=== PATIENT | female | born 1990 | race Caucasian/White ===

== ENCOUNTER 2016-04-19 06:01 | Observation (INO) | payer OTHER ==
[2016-04-10 12:18] VITALS: BMI 22.0
[2016-04-19] VITALS (7 sets, daily range): BP systolic 110–131; BP diastolic 60–87; PULSE 79–160; TEMP 36.7–37.2; O2SAT 97–100; Ht 162.6 cm; Wt 58.5 kg
[~2016-04-19] VITALS: Ht 162.6 cm; Wt 58.5 kg
[~2016-04-19 06:01] MED LIST: BUSP-8 PO; CLINDAMYCIN 600 MG/54 ML D5W IV SCH; HYDR-389 PO; LACTATED RINGER'S 1000ML IV SCH; METO25TA3 PO; PRLSR20 PO
[2016-04-19] MEDS ORDERED: ETON1IMP2 (07:00)
[2016-04-19] MEDS ORDERED: PROPOFOL IV EMULSION 10 MG/ML 100 ML VIAL IV ONE (07:37)
[2016-04-19] MEDS ORDERED: MIDAZOLAM HCL 1 MG/ML 2ML VIAL ONE ×3 (07:53→08:23)
[2016-04-19] MEDS ORDERED: FENTANYL CITRATE INJ 50 MCG/1 ML 2 ML VIAL ONE ×2 (07:54→09:35)
--- NOTE | 2016-04-19 08:07 | History & Physical Bridge Note ---
H&P Re-Evaluation Bridge Note: I have examined the patient, reviewed the History & Physical and in the interval since the performance of the History & Physical I have noted the following changes of clinical significance: No changes noted
[2016-04-19] MEDS ORDERED: LIDOCAINE HCL 1% 20 ML VIAL ONE (08:52)
[2016-04-19] MEDS ORDERED: ADENOSINE IV SOLN 3 MG/ML 2 ML VIAL IV ONE (09:12)
[2016-04-19] MEDS ORDERED: HEPARIN SOD (PORCINE) 1000 UNIT/ML 10 ML VIAL ONE (09:21)
[2016-04-19] MEDS ORDERED: PROPOFOL IV EMULSION 10 MG/ML 20 ML VIAL IV ONE (09:35)
[2016-04-19] MEDS ORDERED: LIDOCAINE HCL 2% 2 ML VIAL (20MG/ML) ONE (09:35)
--- NOTE | 2016-04-19 11:09 | [facility] Post Operative Brief Note ---
Immediate Operative Summary Operative Date Apr 19, 2016. Pre-Operative Diagnosis svt Post-Operative Diagnosis left lateral accessory pathway Procedure(s) Performed eps, radiofrequency ablation of left lateral bypass tract, 3d mapping of MV annulus; c/s pacing Surgeon sinai shields Student Support Services Director Surgeon(s) none Estimated Blood Loss <20cc Findings see official report Fluids (cc crystalloids) 400cc Specimens none Drains none Anesthesia 6mg versed, 300mcg fentanyl, 900mg propofol Complication(s) None Disposition PCU
--- NOTE | 2016-04-19 11:10 | Discharge Instructions ---
Discharge Instructions Admission Reason for Admission: Supraventricular Tachycardia W/Anesthesia Discharge Discharge Diagnosis / Problem: AVRT-left lateral bypass tract; SVT Discharge Goals Goal(s): Improve function Activity Recommendations Activity Limitations: as noted below (no heavy lifting or squatting for 1 week) Exercise/Sports Limitations: as tolerated May Resume Sexual Activity: after one week Shower/Bathe: tomorrow Driving or Machine Use: resume 1 day after discharge . Current Hospital Diet Patient's current hospital diet: Regular Diet Discharge Diet Recommended Diet: Regular Diet Procedures Procedures Performed: eps, radiofrequency ablation of left lateral bypass tract, 3d mapping of MV annulus; c/s pacing Pending Studies Studies pending at discharge: no Medical Emergencies . Who to Call and When: Medical Emergencies: If at any time you feel your situation is an emergency, please call 911 immediately. . Non-Emergent Contact Non-Emergency issues call your: Sole Skiver . . "Provider Documentation" section prepared by Christi Ervin. VTE Core Measure Inpt VTE Proph given/why not?: Treatment not indicated
--- NOTE | 2016-04-19 11:14 | Discharge Summary ---
Discharge Summary Admission Date: 04/19/2016 Discharge Date: Apr 20, 2016 Discharge Disposition: Home Principal Diagnosis: inducible AVRT-left lateral bypass tract; SVT Secondary Diagnoses/Problems: tobacco use Procedures: EPS with radiofrequency ablation of left lateral bypass tract, 3d mapping of MV annulus; LA pacing Medication Reconciliation Continued Medications: Buspirone Hcl (Buspirone Hcl) 10 Mg Tab 10 MG PO BID, TAB Etonogestrel (Nexplanon) 68 Mg Imp UD Hydroxyzine Hcl (Atarax) 10 Mg Tab 10 MG PO Q2D, TAB Omeprazole (Prilosec) 20 Mg Capcr 20 MG PO QAM, CAP Discontinued Medications: Metoprolol Succ (Toprol Xl) (Toprol-Xl) 25 Mg Tabcr 25 MG PO QAM, #30 TAB Admission Information Physical Exam (per Admitting): anxious aaox3, nad nc/at, eomi no jvd nrl s1/s2, no murmur cta b/l no w/r/r soft nt no edema Hospital Course pt admitted for elective EPS with ablation due to SVT under monitored anesthetic care. Pt underwent procedure without any complications found to have a left lateral easily inducible accessory pathway AVRT. Monitored overnight and discharged home following morning. Total time spent on discharge = This includes examination of the patient, discharge planning, medication reconciliation, and communication with other providers. Discharge Instructions ACTIVITY RECOMMENDATIONS: It is common to feel weak and fatigue for a few days. * Do not drive or operate any motorized equipment for the next three days. * Limit stair usage (2 or 3 trips a day only) for the next three days. * Do not lift anything heavier than 10 pounds for the next three days. * Do not engage in vigorous exercise or any sports for the next five days. * You may shower the day after your procedure, but do not immerse the area for three days. Cleanse the site gently with soap and water. SPECIAL CARE INSTRUCTIONS: * You may replace the pressure dressing or band-aid the morning after the procedure. * After your procedure, it is normal to have a small bruise or small lump at the site. Examine your site daily for any change in the bruise or lump, redness, swelling, drainage or numbness. Notify your doctor if any change. BLEEDING: * If there is a small amount of bleeding at the site, lie down and apply firm pressure with a clean cloth for ten minutes. When the bleeding stops, lie quietly keeping the procedure limb straight for six hours. Notify your doctor as soon as possible. * If the bleeding does not stop after ten minutes or if there is a large amount of bleeding or spurting, call 911 immediately. Continue to lie down and hold firm pressure until help arrives. SKIN IRRITATION: * You may experience some redness and/or swelling in the area where radiation was administered. If any skin irritation occurs, please contact your family physician. FOLLOW UP VISIT: Keep any scheduled doctor appointments.
[2016-04-19] MEDS ORDERED: ACETAMINOPHEN 325 MG TAB PO PRN (11:15)
--- NOTE | 2016-04-19 11:36 | Anesthesiology Progress Note ---
Anesthesia Post Op Note Date & Time Apr 19, 2016 at 11:35 Vital Signs Pain Intensity: 2 Vital Signs Past 12 Hours Date Time Temp Pulse Resp B/P Pulse Ox O2 Delivery O2 Flow Rate FiO2 04/19/16 11:30 16 134/80 100 04/19/16 11:20 94 16 122/78 100 Room Air 04/19/16 11:10 98 16 118/90 100 Room Air 04/19/16 06:45 36.8 160 20 110/76 99 Room Air Notes Mental Status: alert / awake / arousable, participated in evaluation Pt Amnestic to Procedure: Yes Nausea / Vomiting: adequately controlled Pain: adequately controlled Airway Patency, RR, SpO2: stable & adequate BP & HR: stable & adequate Hydration State: stable & adequate Anesthetic Complications: no major complications apparent The patient did well. Her temp in recovery was 36.4. Her other vitals are all stable.
[2016-04-19] MEDS ORDERED: IV FLUIDS COMPLETED PRN (12:00)
[2016-04-19] MEDS ORDERED: MoRPHine SULFATE 2 MG/ML CARP ONE (14:21)
--- NOTE | 2016-04-19 16:47 | OPERATIVE REPORT ---
DATE OF OPERATION: 04/19/2016 PREOPERATIVE DIAGNOSIS: Supraventricular tachycardia. 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 PROCEDURE: Electrophysiology study, radiofrequency ablation of a left lateral bypass tract, 3D mapping of the mitral valvular annulus and activation mapping of the SVT, LA pacing from the coronary sinus. SURGEON: Christi Ervin DO PATCH MACHINE OPERATOR: None. ANESTHESIA: Monitored anesthetic care given via anesthesiology with a total of 6 mg of Versed, 300 mcg of fentanyl, and 900 mg of propofol. Anesthesia start time was 8:15, stopped time was 11:20. INTRAVENOUS FLUIDS: 400 mL. BOLUS: Heparin bolus a total of 8000 units over the course of the procedure. COMPLICATIONS: None. CONDITION: Stable. URINE OUTPUT: Not applicable. SPECIMENS: None. FINDINGS: See below. DRAINS: None. INDICATIONS FOR PROCEDURE: This is a 25-year-old female who has a past medical history significant for a prior IV substance abuse with heroin, chronic tobacco use. She has been having significant palpitations for most of her life and then finally went to the [facility] Emergency Room and found to be in SVT responded to a 6 of adenosine. Due to her symptoms of palpitations and evidence of SVT, she was recommended electrophysiology study with possible ablation. CONSENT: Consent was obtained prior to the patient going into the electrophysiology lab. The patient was explained the risks, benefits and alternatives to the procedure. Risks include but not limited to sudden cardiac ; cardiac arrhythmias; cerebrovascular accident; myocardial infarction; injury to the blood vessels, chamber of the heart or the [place] electrical system that the patient may need a permanent pacemaker; bleeding and infection. The patient understood these risks and agreed to go to the procedure as planned. Her mom signed on her behalf since the patient was very anxious for the procedure. DESCRIPTION OF PROCEDURE: The patient was brought into the electrophysiology lab in a fasting state. The patient was connected to continuous cardiac monitoring. A time-out was performed to ensure patient's identity and procedure preoperatively. The patient was prepped and draped over the bilateral groins in normal surgical standard fashion. Monitored anesthetic care was given throughout the procedure via anesthesiology. [place] precautions were maintained throughout the procedure. A 10 mL of 1% lidocaine were given for local anesthesia in the bilateral groins. Using the modified Seldinger technique, venous access was obtained in the following manner; 1. The left femoral vein had a 7-Georgian sheath followed by tachycardia Decapolar Biosense CS catheter DF curve positioned into the coronary sinus. 2. A 7-Georgian sheath with a hisser diagnostic quad catheter positioned over the His bundle. 3. A 6-Georgian sheath with a Chandni diagnostic quad positioned into the right ventricular apex. 4. The right groin within right femoral vein had a 6-Georgian sheath with a Chandni quad diagnostic catheter positioned into the high right atrium. 5. Eventually, the right femoral artery had a 9-Georgian sheath with SmartTouch Biosense irrigational 4 mm ablation catheter DF curve. Electrophysiology study was performed with the following findings: 1. Baseline intervals, OH interval 168 milliseconds, QRS 66 milliseconds, QT 346 milliseconds, sinus cycle length 670 milliseconds, AH 92 milliseconds, HV 40 milliseconds. 2. With positioning of the catheters into the heart, the patient did go into SVT. She did spontaneously convert on her own. We then positioned the catheters and with atrial burst pacing at 450 milliseconds, we induced the tachycardia again. Tachycardia cycle length was 340 milliseconds. The earliest retrograde A was found in the CS distal at 5, 6 and 1, 2. We gave adenosine 6 mg and this broke the tachycardia with blocking in the AV node, the last signal was a retrograde A. 3. We were easily able to re-induce the tachycardia at 450 milliseconds. We therefore set up to do a left lateral bypass tract accessory pathway ablation. I gave another 5 mL of 1% local anesthesia and local 1% lidocaine in the right femoral groin area and then obtained femoral arterial access without any problems and a 9-Georgian sheath was inserted over the guidewire and then the ablation catheter was advanced up retrograde through the aorta and we did 3D mapping of the mitral valvular annulus as well as activation mapping of the tachycardia. Of note, they looked to be bypassed potentials on the CS poles 1 and 2 and 3 and 4. We positioned our ablation catheter on that area and mapped around. Once we found the earliest site and the AV signal on our ablation catheter were merged and possibly there was even bypass potential, we when on radiofrequency ablation at 35 castelan. A 2.7 seconds within the burn, the SVT was terminated. We then gave 2 more insurance greer up to 15 seconds and then the next with up to 30 seconds. The ablation catheter was then removed from the heart. An electrophysiology study was done while we were in our waiting period with the following findings: 1. OH interval 150 milliseconds, QRS 52 milliseconds, QT 324 milliseconds. 2. Sinus cycle length 638 milliseconds, AH 88 milliseconds, HV 34 milliseconds. 3. With atrial burst pacing, AV Wenckebach was found to be 300 milliseconds. 4. With atrial extrastimuli from the high right atrium, the atrial ERP was found to be 600/240 with the AV node being less than or equal to that as well as the atrial ERP was found to be 400/210 with AV node being less than or equal to that. We gave up to triplets from the high right atrium and I was not able to induce any SVT. 5. With right ventricular extrastimuli, the right ventricular ERP was found to be 600/240 and 400/210. Of note, there was AV dissociation. 6. I paced this from the CS catheter pull 05/20 and there was no evidence of bypass tract conduction and this was where the bypass tract was running over. 7. We therefore declared that we were successful for a left lateral bypass accessory pathway AVRT ablation. IMPRESSION 1. Inducible atrioventricular reentry tachycardia with evidence of a left lateral bypass tract, orthodromic conduction, successful radiofrequency ablation of this bypass tract. 2. Normal atrioventricular yamileth function. 3. No evidence of dual atrioventricular yamileth pathology. 4. All the catheters were then removed from her heart and once her ACT was at an acceptable range, the sheaths were pulled and manual compression was held to ensure hemostasis. PLAN: Monitor patient overnight, 12-lead ECG. We can stop her metoprolol and she can follow up with me in the [place] office in 1 month. I attest to the content of the Intraoperative Record and any orders documented therein. Any exceptions are noted below. SHIRLEY
[2016-04-20 04:00] VITALS: BP 110/62; PULSE 79; TEMP 36.9; O2SAT 98
[2016-04-20 08:16] VITALS: BP 102/56; PULSE 68; TEMP 36.8; O2SAT 96
--- NOTE | 2016-04-20 08:49 | Cardiology Follow-Up ---
Subjective Subjective Date of Service: Apr 20, 2016. Pt evaluation today including: conversation w/ patient, physical exam, lab review Pain: none Review of Systems Constitutional: No weakness Cardiac: No chest pain, No edema, No palpitations Neurologic: No weakness Objective Vital Signs Last Vital Signs Documentation Date Time Temp Pulse Resp B/P Pulse Ox O2 Delivery O2 Flow Rate FiO2 04/20/16 08:16 36.8 68 18 102/56 96 04/20/16 04:00 Room Air Physical Exam: General Appearance: WD/WN, no apparent distress Eyes: bilateral eyes EOMI, bilateral eyes PERRL Neck: supple, no JVD Respiratory/Chest: lungs clear, normal breath sounds Cardiovascular: regular rate, rhythm, no edema, no JVD, no murmur Abdomen: soft (b/l groins soft no hematoma) Neurologic/Psychiatric: alert, oriented x 3 Skin: warm/dry, no rash Assessment and Plan Impression: 1. AVRT inducible +left lateral bypass tract s/p ablation 2. Sinus tachycardia 3. Chronic tobacco use 4. history of substance abuse Plan; -stop metoprolol -ok for discharge home today -f/u in my [place] office in 1 month Medications: Medications Administered Medications (Trade) Dose Ordered Sig/Jyoti Route Start Time Stop Time Status Last Admin Dose Admin Lactated Ringer's (Lr 1000ml) 1,000 ml @ 15 mls/hr Q24H IV 04/19/16 06:00 04/19/16 18:00 DC 04/19/16 06:00 15 MLS/HR Adenosine (Adenosine IV) 6 mg STK-MED ONCE IV 04/19/16 09:12 04/19/16 09:13 DC 04/19/16 09:12 6 MG Heparin Sodium (Porcine) (Heparin Iv Bolus) 10,000 unit STK-MED ONCE .ROUTE 04/19/16 09:21 04/19/16 09:23 DC 04/19/16 09:21 8,000 UNIT Acetaminophen (Tylenol Tab) 650 mg Q4H PRN PO 04/19/16 11:15 05/19/16 11:14 04/19/16 22:30 650 MG Buspirone HCl (Buspar Tab) 10 mg BID PO 04/19/16 21:00 05/19/16 20:59 04/20/16 08:37 10 MG Pantoprazole Sodium (Protonix Tab) 40 mg QAM PO 04/20/16 09:00 05/20/16 08:59 04/20/16 08:37 40 MG Morphine Sulfate (MoRPHine SULFATE INJ) 2 mg STK-MED ONCE .ROUTE 04/19/16 14:21 04/19/16 14:22 DC 04/19/16 14:21 2 MG Lab Results: Telemetry: SR/ST ECG: ST Last 24 Hours Test 04/19/16 09:31 04/19/16 09:52 04/19/16 10:16 04/19/16 11:23 Kaolin Activated Coagulation Time 188 SECONDS 204 SECONDS 255 SECONDS 209 SECONDS Test 04/19/16 12:30 04/19/16 13:29 04/19/16 14:01 Kaolin Activated Coagulation Time 178 SECONDS 157 SECONDS 147 SECONDS
[2016-04-20] MEDS ORDERED: PANTOprazole SOD 40 MG TAB PO SCH (09:00)
[2016-04-20 09:04] VITALS: BP 102/56; PULSE 68; TEMP 36.8; O2SAT 96
--- NOTE | 2016-04-20 09:29 | Anesthesiology Progress Note ---
Anesthesia Post Op Note Date & Time Apr 20, 2016 at 09:29 Vital Signs Pain Intensity: 0.0 Vital Signs Past 12 Hours Date Time Temp Pulse Resp B/P Pulse Ox O2 Delivery O2 Flow Rate FiO2 04/20/16 09:04 36.8 68 18 96 Room Air 04/20/16 08:16 36.8 68 18 102/56 96 04/20/16 08:00 Room Air 04/20/16 04:00 36.9 79 16 110/62 98 Room Air 04/20/16 04:00 Room Air 04/20/16 00:00 Room Air 04/19/16 23:34 37.2 85 18 110/60 97 Notes Mental Status: alert / awake / arousable, participated in evaluation Pt Amnestic to Procedure: Yes Nausea / Vomiting: adequately controlled Pain: adequately controlled Airway Patency, RR, SpO2: stable & adequate BP & HR: stable & adequate Hydration State: stable & adequate Anesthetic Complications: no major complications apparent
[2016-04-20] MEDS ORDERED: hydrOXYzine HCL 10 MG TAB PO SCH (12:00)
== END 2016-04-20 09:33 | disposition home or self-care (01) ==
LOC: C.ACU 06:01 → C.2E 16:00
PROVIDERS: ADMIT Internal Medicine; ATTEND Internal Medicine
DX: I47.1 Supraventricular tachycardia (principal); F17.299 Nicotine dependence, other tobacco product, with unspecified nicotine-induced disorders; F11.10 Opioid abuse, uncomplicated; F17.210 Nicotine dependence, cigarettes, uncomplicated; F41.0 Panic disorder [episodic paroxysmal anxiety]; D50.9 Iron deficiency anemia, unspecified; J45.990 Exercise induced bronchospasm; F41.1 Generalized anxiety disorder

== ENCOUNTER 2022-11-07 07:20 | Inpatient (IN) ==
[2022-11-07] MEDS ORDERED: LIDOCAINE 1% LOCAL 20 ML VIAL INFIL PRN (08:34)
[2022-11-07] MEDS ORDERED: OXYTOCIN 30 UNITS/500 ML BAG IV PRN ×2 (08:34)
--- NOTE | 2022-11-07 08:43 | History & Physical Report ---
Date of Service November 07, 2022 Assessment & Plan (1) Encounter for induction of labor: Plan 32 yo at 40w4d PMHx substance abuse on suboxone and +Hep C Ab (untreated) presents for induction of labor. Admission and Anticipated Discharge Date Admission Date: November 07, 2022 History of Present Illness Primary Care Provider: Litzy Padilla DO 32 yo at 40w4d PMHx substance abuse on suboxone and +Hep C Ab (untreated) presents for induction of labor. Hernandez bulb not placed last PM due to cervical dilation. She is GBS negative. Mom is doing well. FOB is present. Allergies Allergy/AdvReac Type Severity Reaction Status Date / Time Bactrim Allergy Mild HIVES Verified 04/19/16 06:55 Penicillins Allergy Mild HIVES Verified 11/06/22 15:27 sertraline Allergy Mild MAKES Verified 11/06/22 15:27 DEPRESSION WORSE sulfamethoxazole [Bactrim] Allergy Mild HIVES Verified 11/06/22 15:27 trimethoprim [Bactrim] Allergy Mild HIVES Verified 11/06/22 15:27 amoxicillin Allergy hives/itchi Verified 11/06/22 15:27 ng naloxone Allergy hives Verified 11/06/22 15:27 Home Medications Medication Instructions Recorded Confirmed Type buprenorphine 8 mg-naloxone 2 mg 2 tab sublingual DAILY 07/27/20 11/06/22 History sublingual tablet imiquimod 5 % topical cream packet 1 applic topical .q48 16 weeks #24 12/17/20 11/06/22 Rx ea inulin 1.5 gram chewable tablet g PO 04/20/22 11/06/22 History (Children's Fiber Select Gummies) pediatric multivitamin no.76 1 tab PO DAILY 04/20/22 11/06/22 History (Flintstones Complete chewable tablet) ferrous sulfate 325 mg (65 mg 325 mg PO DAILY #30 tabs 08/16/22 11/06/22 Rx iron) tablet (Feosol) omeprazole 20 mg capsule,delayed 20 mg PO DAILY #30 caps 10/17/22 11/06/22 Rx release Past Med/Surg History Medical History H/O: substance abuse Surgical History History of colposcopy History of mandibular surgery Family History Aunt Breast cancer Grandmother (Maternal) Breast cancer Diabetes Esophageal cancer Mother Breast cancer Myocardial infarction Grandfather (Maternal) Diabetes Social History Smoking Status: Current every day smoker Tobacco Type: Cigarettes packs per day: 0.5; Cigarettes Per Day: 10; Second Hand Exposure: Yes; Do You Dip or Chew Tobacco: No; Hx Alcohol Use: No Hx Substance Use: Yes Non-Prescribed Medications: Heroin Last Used Substance Other:: last pm Preferred Language: Vietnamese Communication Ability: Effective Ophthalmic Tech Required: No Beliefs That Will Affect Care: None marital status: Single marital status details: Gina (27) [phone] Current Living Situation: Spouse and Parent Current Living Situation Comment: mother, FOB, and son current occupational status: employed 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 How many Children do You have: 1 Other Information That Helps Us Care for You: No Feels Safe at Home: Yes Safety Concerns: Feels Safe At This Time Do you think of yourself as: straight/heterosexual Gender Identity: Female Assistive Devices: None Review of Systems Review of Systems: reviewed, see HPI Physical Exam Physical Exam: General: patient resting comfortably, NAD, non-toxic in appearance, AA&O x 4, answers questions appropriately Skin: warm, dry, intact HEENT: NC/AT, anicteric sclera, conjunctiva without injection, moist mucus membranes, Heart: +S1/S2, regular, no m/r/g Lungs: equal air entry bilaterally, no rales/rhonchi/wheezes Abd: +BS, soft, NT/ND, gravid uterus Ext: warm, no clubbing/cyanosis or edema Neuro: nonfocal, patient AA&O x 4, speech intact, no facial droop, moving all extremities on command. Results & Data Results & Data Vital Signs (Past 12 Hours) Vital Signs Pulse BP 11/07/22 08:04 61 119/76 Supervising Physician Co-Signing Physician Notes Resident Physician Supervision Note: I interviewed and examined the patient. Discussed with Dr. Sotelo and agree with findings and plan as documented in the note. Any exceptions or clarifications are listed here: 32yo @ 40 06/23, IOL for postdates. Will start pitocin for induction - patient agreeable with plan. She desires to avoid epidural. We discussed pain control with IV pain medications, however cannot give just prior to . She did last delivery without epidural and felt like she did well without. H/o Hep C Ab with no prior diagnosis, found on labs. Check Hep C RNA quant today. H/o substance abuse - heroin, currently in treatment with subutex 8mg TID (dosage confirmed with her prescribing staffing specialist). Took 1/2 tab this morning. Elevated 1h glucola, unable to complete 2h GTT - therefore treated as GDM during . Will check glucose Q2h. Documented By: Tawana Rangel, DO Resident Activity Tracking Resident Involvement: Resident Care Provided Care Provided: Adult Hospital Medicine
[2022-11-07] MEDS ORDERED: NON-FORMULARY MEDICATION (Ferrous Sulfate [Feosol] 325 mg (65 mg iron) tablet) PO SCH (09:00)
[2022-11-07] MEDS ORDERED: NON-FORMULARY MEDICATION (Buprenorphine-Naloxone 8-2 mg tablet, sublingual) SL SCH (09:00)
[2022-11-07 09:16] LABS: Hematocrit (blood only) 35.3 % (37.0-47.0); Hemoglobin 11.7 g/dl (12.0-16.0); Mean Corpuscular Hemoglobin 26.5 pg (25.0-34.0); Mean Corpuscular Hgb Conc 33.1 g/dL (32.0-36.0); Mean Corpuscular Volume 79.9 fL (80.0-100.0); Mean Platelet Volume 10.6 fL (9.4-12.4); Platelet Count 160 K/uL (130-400); RDW Coefficient of Variation 24.8 % (11.5-14.5); RDW Standard Deviation 67.7 fL (36.4-46.3); Red Blood Count 4.42 M/uL (4.20-5.40); White Blood Count 7.36 K/ul (4.8-10.8)
[2022-11-07] MEDS: LACTATED RINGER'S 1,000 ML IV PRN ×5 (10:26→23:15)
[2022-11-07] MEDS: ONDANSETRON INJ 2 MG/ML 2 ML VIAL IV PRN (11:08)
[2022-11-07 12:27] LABS: Amphetamines+Metham, Urine Neg (Neg); Barbiturates, Urine Neg (Neg); Benzodiazepine, Urine Neg (Neg); Cocaine, Urine Neg (Neg); MDMA (Ecstacy), Urine Neg (Neg); Methadone, Urine Neg (Neg); Opiate, Urine Neg (Neg); Phencyclidine, Urine Neg (Neg)
[2022-11-07] MEDS: buprenorphine HCL 8 MG SUBL SL SCH ×2 (14:54→21:36)
[2022-11-07] MEDS: FAMOTIDINE 20 MG TAB PO SCH (15:09)
--- NOTE | 2022-11-07 16:29 | Labor Progress Brief Note ---
Date of Service November 07, 2022 Subjective FHT Cat 1 [place] Q 2 SVE 3/70/-2 AROM meconium stained fluid Continue IOL. Assessment & Plan Admission and Anticipated Discharge Date Admission Date: November 07, 2022 Results & Data Vital Signs (Past 12 Hours) Vital Signs Temp Pulse Resp BP Pulse Ox O2 Del Method 11/07/22 15:00 36.6 C 18 11/07/22 15:00 Room Air 11/07/22 16:25 52 L 100 11/07/22 16:20 56 L 99 11/07/22 16:15 45 L 98 11/07/22 16:10 49 L 99 11/07/22 16:05 51 L 99 11/07/22 16:02 47 L 119/67 11/07/22 16:00 53 L 100 11/07/22 15:55 53 L 100 11/07/22 15:50 53 L 100 11/07/22 15:45 53 L 100 11/07/22 15:40 51 L 100 11/07/22 15:35 58 L 100 11/07/22 15:30 60 100 11/07/22 15:25 58 L 100 11/07/22 15:20 52 L 100 11/07/22 15:15 55 L 100 11/07/22 15:10 45 L 100 11/07/22 15:09 48 L 112/60 11/07/22 15:05 42 L 144/66 H 11/07/22 10:25 51 L 118/69 11/07/22 08:04 37.0 C 61 119/76 Coding Level of Care Code None Diagnoses
[2022-11-07] MEDS ORDERED: MoRPHine SULFATE 4 MG/ML 1 ML CARP\\VIAL IV STA (17:49)
--- NOTE | 2022-11-07 17:52 | Labor Progress Brief Note ---
Date of Service November 07, 2022 Subjective FHT Cat 1 [place] Q 2 SVE 4/80/-1 Very painful- requesting pain medication. Discussed problems with mixing subutex and partial opioid agonists (nubian, stadol) - risks of withdrawal symptoms. Offered morphine as a temporary pain relief during labor, however cannot fátima nue to give IV pain medication as we approach delivery. Offered epidural as effective pain control, patient declines - does not want epidural regardless. Assessment & Plan Admission and Anticipated Discharge Date Admission Date: November 07, 2022 Results & Data Vital Signs (Past 12 Hours) Vital Signs Temp Pulse Resp BP Pulse Ox O2 Del Method 11/07/22 15:00 36.6 C 18 11/07/22 15:00 Room Air 11/07/22 17:47 121 H 79 L 11/07/22 17:41 91 11/07/22 17:41 56 L 11/07/22 17:41 53 L 88 L 11/07/22 17:35 50 L 100 11/07/22 17:30 47 L 100 11/07/22 17:25 63 97 11/07/22 17:20 46 L 99 11/07/22 17:15 50 L 100 11/07/22 17:13 20 11/07/22 17:13 36.9 C 43 L 20 148/76 H 11/07/22 17:10 44 L 100 11/07/22 17:05 53 L 100 11/07/22 17:00 58 L 99 11/07/22 16:55 48 L 98 11/07/22 16:50 56 L 98 11/07/22 16:45 52 L 98 11/07/22 16:40 54 L 99 11/07/22 16:35 52 L 98 11/07/22 16:30 53 L 99 11/07/22 16:25 52 L 100 11/07/22 16:20 56 L 99 11/07/22 16:15 45 L 98 11/07/22 16:10 49 L 99 11/07/22 16:05 51 L 99 11/07/22 16:02 47 L 119/67 11/07/22 16:00 53 L 100 11/07/22 15:55 53 L 100 11/07/22 15:50 53 L 100 11/07/22 15:45 53 L 100 11/07/22 15:40 51 L 100 11/07/22 15:35 58 L 100 11/07/22 15:30 60 100 11/07/22 15:25 58 L 100 11/07/22 15:20 52 L 100 11/07/22 15:15 55 L 100 11/07/22 15:10 45 L 100 11/07/22 15:09 48 L 112/60 11/07/22 15:05 42 L 144/66 H 11/07/22 10:25 51 L 118/69 11/07/22 08:04 37.0 C 61 119/76 Coding Level of Care Code None Diagnoses
[2022-11-07] MEDS ORDERED: fentaNYL citrate PF 100 MCG/2 ML VIAL ONE (19:44)
[2022-11-07] MEDS ORDERED: BUPIVACAINE 0.25% PF 30 ML VIAL ONE (19:44)
[2022-11-07] MEDS ORDERED: SODIUM CHLORIDE 0.9% PF INJ 10 ML VIAL ONE (19:44)
[2022-11-07] MEDS ORDERED: ePHEDrine sulfate 50 MG/ML AMP ONE (19:44)
[2022-11-07] MEDS ORDERED: fentaNYL 2MCG/ML ROPIVACAINE 1.25MG/ML 100 ML BAG EPI ONE (19:45)
[2022-11-07] MEDS ORDERED: LIDOCAINE 2%/EPINEPHRINE 1:200,000 20 ML PF ONE (19:45)
--- NOTE | 2022-11-07 19:47 | Anesthesiology Consultation ---
Date of Service November 07, 2022 Assessment & Plan Chart Review Chart Review: Patient NOT seen in Pre Admission Testing and Acceptable Risk for Labor Epidural Consults Requested none History Height/Weight Height: 5 ft 4 in Weight: 55.792 kg Allergies Allergy/AdvReac Type Severity Reaction Status Date / Time Bactrim Allergy Mild HIVES Verified 04/19/16 06:55 Penicillins Allergy Mild HIVES Verified 11/06/22 15:27 sertraline Allergy Mild MAKES Verified 11/06/22 15:27 DEPRESSION WORSE sulfamethoxazole [Bactrim] Allergy Mild HIVES Verified 11/06/22 15:27 trimethoprim [Bactrim] Allergy Mild HIVES Verified 11/06/22 15:27 amoxicillin Allergy hives/itchi Verified 11/06/22 15:27 ng naloxone Allergy hives Verified 11/06/22 15:27 Medications Home Medications Medication Instructions Recorded Confirmed Last Taken buprenorphine 8 mg-naloxone 2 mg 2 tab sublingual DAILY 07/27/20 11/06/22 11/06/22 sublingual tablet imiquimod 5 % topical cream packet 1 applic topical .q48 16 weeks #24 12/17/20 11/06/22 11/06/22 ea inulin 1.5 gram chewable tablet g PO 04/20/22 11/06/22 11/06/22 (Children's Fiber Select Gummies) pediatric multivitamin no.76 1 tab PO DAILY 04/20/22 11/06/22 11/06/22 (Flintstones Complete chewable tablet) ferrous sulfate 325 mg (65 mg 325 mg PO DAILY #30 tabs 08/16/22 11/06/22 11/06/22 iron) tablet (Feosol) omeprazole 20 mg capsule,delayed 20 mg PO DAILY #30 caps 10/17/22 11/06/22 11/06/22 release Active Medications Generic Name Dose Route Start Last Admin Trade Name Freq PRN Reason Stop Dose Admin Buprenorphine HCl 8 mg 11/07/22 14:00 11/07/22 14:54 Buprenorphine Hcl 8 Mg Subl SL 12/07/22 13:59 8 mg TID EVANGELINA Administration Famotidine 20 mg 11/07/22 14:30 11/07/22 15:09 Famotidine 20 Mg Tab PO 12/07/22 14:29 20 mg QAM EVANGELINA Administration Oxytocin 30 units in 500 mls @ 4 mls/hr 11/07/22 08:34 11/07/22 19:31 Pitocin IV 11/09/22 08:33 0.24 units/hr .Q24H PRN 4 mls/hr Labor Induction/Augmentation Titration Protocol 0.24 UNITS/HR Lactated Ringer's 1,000 mls @ 125 mls/hr 11/07/22 08:34 11/07/22 19:25 Lr IV 11/09/22 08:33 125 mls/hr .Q8H PRN Infusion L&D Protocol Protocol Ondansetron HCl 4 mg 11/07/22 10:51 11/07/22 11:08 Ondansetron Inj 2 Mg/Ml 2 Ml Vial IV 12/07/22 10:50 4 mg Q6H PRN Administration Nausea And Vomiting Past Medical History Medical History H/O: substance abuse Past Family History Family History Aunt Breast cancer Grandmother (Maternal) Breast cancer Diabetes Esophageal cancer Mother Breast cancer Myocardial infarction Grandfather (Maternal) Diabetes Past Surgical History Surgical History History of colposcopy History of mandibular surgery Social History Smoking Status: Current every day smoker Smoking cigarettes per day: 10 Do You Dip or Chew Tobacco: No Hx Alcohol Use: No Hx Substance Use: Yes substance use type: marijuana Last Used Substance Other:: last pm Physical Exam Vital Signs Last Vital Signs Temp 97.5 F L 11/07/22 19:20 Pulse 49 L 11/07/22 19:41 Resp 20 11/07/22 19:20 BP 124/81 11/07/22 19:02 Pulse Ox 100 11/07/22 19:41 O2 Del Method Room Air 11/07/22 15:00 Testing Laboratory Results 11/07/22 08:51 11/07/22 11/07/22 11/07/22 19:28 17:09 15:15 POC Glucose 80 130 H 87 11/07/22 11/07/22 13:03 11:11 POC Glucose 90 120 H
[2022-11-07] MEDS ORDERED: SODIUM CHLORIDE 0.9% PF INJ 10 ML VIAL EPI STA (19:48)
[2022-11-07] MEDS ORDERED: BUPIVACAINE 0.25% PF 30 ML VIAL EPI STA (19:48)
[2022-11-07] MEDS ORDERED: LIDOCAINE 2%/EPINEPHRINE 1:200,000 20 ML PF EPI STA (19:48)
[2022-11-07] MEDS ORDERED: diphenhydrAMINE 50 MG/ML VIAL IV PRN (19:48)
[2022-11-07] MEDS ORDERED: NALBUPHINE HCL INJ 10 MG/ML AMP IV PRN (19:48)
[2022-11-07] MEDS ORDERED: SODIUM CHLORIDE 0.9% PF INJ 10 ML VIAL EPI PRN (19:48)
[2022-11-07] MEDS ORDERED: fentaNYL citrate PF 100 MCG/2 ML VIAL EPI PRN (19:48)
[2022-11-07] MEDS ORDERED: ROPIVACAINE 0.5% PF 5 MG/ML 20 ML VIAL EPI PRN (19:48)
[2022-11-07] MEDS ORDERED: fentaNYL citrate PF 100 MCG/2 ML VIAL EPI STA (19:48)
[2022-11-07] MEDS ORDERED: ePHEDrine sulfate 50 MG/ML AMP IV PRN (19:48)
[2022-11-07] MEDS ORDERED: BUPIVACAINE 0.25% PF 30 ML VIAL EPI PRN (19:48)
[2022-11-07] MEDS ORDERED: LIDOCAINE 2% MPF LOCAL 5 ML VIAL EPI PRN (19:48)
[2022-11-07] MEDS: fentaNYL 2MCG/ML ROPIVACAINE 1.25MG/ML 100 ML BAG EPI PRN (20:08)
--- NOTE | 2022-11-07 22:49 | Labor Progress Brief Note ---
Date of Service November 07, 2022 Subjective Patient elected for epidural, this has been placed, much more comfortable. She then had nausea/vomiting, and subsequent FHT deceleration with slow return to baseline. Return to baseline accomplished with repositioning, stopping pitocin, O2, fluids bolus. At this time, FHT cat 1, 110s, mod jodee, no accels, +early decels. Will continue labor at this time. SVE 6/90/0, bloody show. Assessment & Plan Admission and Anticipated Discharge Date Admission Date: November 07, 2022 Results & Data Vital Signs (Past 12 Hours) Vital Signs Temp Pulse Resp BP Pulse Ox O2 Del Method 11/07/22 19:20 36.4 C L 20 11/07/22 15:00 36.6 C 18 11/07/22 15:00 Room Air 11/07/22 22:42 49 L 100 11/07/22 22:37 57 L 100 11/07/22 22:32 57 L 100 11/07/22 22:33 54 L 138/75 91 11/07/22 22:27 84 L 11/07/22 22:27 58 L 11/07/22 22:27 59 L 91 11/07/22 22:22 66 99 11/07/22 22:19 54 L 146/81 H 11/07/22 22:17 69 100 11/07/22 22:12 54 L 100 11/07/22 22:00 18 11/07/22 22:00 18 11/07/22 22:07 50 L 100 11/07/22 22:06 56 L 139/73 11/07/22 22:05 65 94 11/07/22 22:02 52 L 100 11/07/22 21:45 18 11/07/22 21:45 18 11/07/22 21:57 49 L 100 11/07/22 21:52 49 L 100 11/07/22 21:10 16 11/07/22 21:10 16 11/07/22 21:30 36.7 C 18 11/07/22 20:25 20 11/07/22 20:25 20 11/07/22 20:40 18 11/07/22 20:40 18 11/07/22 20:55 16 11/07/22 20:55 16 11/07/22 21:48 55 L 128/79 11/07/22 21:47 49 L 100 11/07/22 21:44 57 L 90 11/07/22 21:42 55 L 100 11/07/22 21:37 60 100 11/07/22 21:33 50 L 124/65 11/07/22 21:32 54 L 100 11/07/22 21:27 47 L 100 11/07/22 21:22 44 L 100 11/07/22 21:17 56 L 100 11/07/22 21:12 56 L 100 11/07/22 21:07 47 L 100 11/07/22 21:04 50 L 124/68 11/07/22 21:02 47 L 100 11/07/22 20:59 54 L 91 11/07/22 20:57 56 L 100 11/07/22 20:52 49 L 100 11/07/22 20:50 46 L 127/64 11/07/22 20:47 43 L 100 11/07/22 20:43 58 L 91 11/07/22 20:42 58 L 97 11/07/22 20:37 100 11/07/22 20:37 51 L 11/07/22 20:37 50 L 90 11/07/22 20:32 47 L 147/68 H 100 11/07/22 20:30 46 L 129/67 11/07/22 20:28 48 L 120/66 11/07/22 20:27 48 L 97 11/07/22 20:26 48 L 153/82 H 11/07/22 20:23 51 L 92 11/07/22 20:24 52 L 114/72 11/07/22 20:22 100 11/07/22 20:22 51 L 11/07/22 20:22 50 L 131/73 11/07/22 20:20 51 L 18 119/63 11/07/22 20:17 47 L 99 11/07/22 20:18 51 L 115/67 11/07/22 20:15 66 20 79 L 11/07/22 20:14 47 L 114/59 L 11/07/22 20:11 48 L 100 11/07/22 20:12 44 L 137/63 11/07/22 20:10 42 L 117/64 11/07/22 20:07 58 L 90 11/07/22 20:06 55 L 100 11/07/22 20:01 59 L 100 11/07/22 19:56 50 L 95 11/07/22 19:55 64 92 11/07/22 19:51 53 L 100 11/07/22 19:46 57 L 100 11/07/22 19:41 49 L 100 11/07/22 19:36 54 L 100 11/07/22 19:31 47 L 100 11/07/22 19:27 56 L 92 11/07/22 19:26 50 L 99 11/07/22 19:21 52 L 100 11/07/22 19:16 41 L 100 11/07/22 19:11 65 98 11/07/22 19:06 48 L 100 11/07/22 19:02 52 L 124/81 11/07/22 19:01 47 L 100 11/07/22 18:56 49 L 100 11/07/22 18:51 52 L 99 11/07/22 18:46 54 L 100 11/07/22 18:41 51 L 100 11/07/22 18:36 47 L 100 11/07/22 18:31 74 99 11/07/22 18:26 45 L 100 11/07/22 18:21 49 L 93 11/07/22 18:19 43 L 134/75 11/07/22 18:16 48 L 100 11/07/22 18:11 63 100 11/07/22 18:06 54 L 100 11/07/22 17:56 63 96 11/07/22 17:47 121 H 79 L 11/07/22 17:41 91 11/07/22 17:41 56 L 11/07/22 17:41 53 L 88 L 11/07/22 17:35 50 L 100 11/07/22 17:30 47 L 100 11/07/22 17:25 63 97 11/07/22 17:20 46 L 99 11/07/22 17:15 50 L 100 11/07/22 17:13 20 11/07/22 17:13 36.9 C 43 L 20 148/76 H 11/07/22 17:10 44 L 100 11/07/22 17:05 53 L 100 11/07/22 17:00 58 L 99 11/07/22 16:55 48 L 98 11/07/22 16:50 56 L 98 11/07/22 16:45 52 L 98 11/07/22 16:40 54 L 99 11/07/22 16:35 52 L 98 11/07/22 16:30 53 L 99 11/07/22 16:25 52 L 100 11/07/22 16:20 56 L 99 11/07/22 16:15 45 L 98 11/07/22 16:10 49 L 99 11/07/22 16:05 51 L 99 11/07/22 16:02 47 L 119/67 11/07/22 16:00 53 L 100 11/07/22 15:55 53 L 100 11/07/22 15:50 53 L 100 11/07/22 15:45 53 L 100 11/07/22 15:40 51 L 100 11/07/22 15:35 58 L 100 11/07/22 15:30 60 100 11/07/22 15:25 58 L 100 11/07/22 15:20 52 L 100 11/07/22 15:15 55 L 100 11/07/22 15:10 45 L 100 11/07/22 15:09 48 L 112/60 11/07/22 15:05 42 L 144/66 H Coding Level of Care Code None Diagnoses
[2022-11-08] MEDS: fentaNYL 2MCG/ML ROPIVACAINE 1.25MG/ML 100 ML BAG EPI PRN (03:40)
[2022-11-08] MEDS ORDERED: NURSING L&D Epidural Breakthrough Pain Update ONE (04:12)
[2022-11-08] MEDS: LACTATED RINGER'S 1,000 ML IV PRN (05:04)
--- NOTE | 2022-11-08 05:07 | Labor Progress Brief Note ---
Date of Service November 08, 2022 Subjective Comfortable with epidural, but nauseated and throwing up. Declines nausea medication. FHT 110s, mod jodee, +accels. When vomiting, FHT decelerated to 80s, with subsequent return to baseline. Ivalee Q 2 SVE anterior lip, reduced with pushing to 2+ station. Continue labor, and anticipate . Assessment & Plan Admission and Anticipated Discharge Date Admission Date: November 07, 2022 Results & Data Vital Signs (Past 12 Hours) Vital Signs Temp Pulse Resp BP Pulse Ox 11/07/22 19:20 36.4 C L 20 11/08/22 05:04 68 125/56 L 11/08/22 05:02 101 H 94 11/08/22 04:57 77 94 11/08/22 04:52 71 95 11/08/22 04:49 53 L 123/69 11/08/22 04:47 73 95 11/08/22 04:46 55 L 94 11/08/22 04:42 53 L 95 11/08/22 04:41 57 L 94 11/08/22 04:37 52 L 95 11/08/22 04:35 63 94 11/08/22 04:32 54 L 93 11/08/22 04:33 52 L 126/68 11/08/22 04:30 18 11/08/22 04:30 18 11/08/22 04:27 52 L 94 11/08/22 04:22 56 L 94 11/08/22 04:19 52 L 129/74 11/08/22 04:17 56 L 94 11/08/22 04:00 18 11/08/22 04:00 18 11/08/22 04:13 58 L 94 11/08/22 04:12 62 94 11/08/22 04:07 62 94 11/08/22 04:05 61 107/53 L 11/08/22 04:02 94 11/08/22 04:02 64 11/08/22 04:02 85 94 11/08/22 03:57 52 L 93 11/08/22 03:52 53 L 93 11/08/22 03:45 36.7 C 11/08/22 03:47 65 92 11/08/22 03:48 61 128/63 11/08/22 03:42 93 H 93 11/08/22 03:39 76 94 11/08/22 03:37 64 93 11/08/22 03:30 16 11/08/22 03:30 16 11/08/22 03:34 52 L 126/62 11/08/22 03:32 73 93 11/08/22 03:27 53 L 93 11/08/22 03:22 59 L 93 11/08/22 03:19 54 L 112/66 11/08/22 03:17 58 L 94 11/08/22 03:12 54 L 93 11/08/22 03:07 63 94 11/08/22 03:04 53 L 127/65 11/08/22 03:02 57 L 93 11/08/22 02:57 53 L 94 11/08/22 02:52 59 L 94 11/08/22 02:49 75 108/61 11/08/22 02:47 64 94 11/08/22 02:43 71 94 11/08/22 02:42 66 94 11/08/22 02:37 93 H 94 11/08/22 02:35 69 94 11/08/22 02:34 51 L 108/60 11/08/22 02:32 64 95 11/08/22 02:30 16 11/08/22 02:30 16 11/08/22 02:29 61 94 11/08/22 02:27 50 L 94 11/08/22 02:22 50 L 94 11/08/22 02:19 51 L 94 11/08/22 02:17 60 93 11/08/22 02:18 54 L 98/57 L 11/08/22 02:12 68 95 11/08/22 02:11 47 L 94 11/08/22 02:07 52 L 94 11/08/22 02:03 53 L 113/73 93 11/08/22 02:00 16 11/08/22 02:00 16 11/08/22 02:02 59 L 94 11/08/22 01:30 18 11/08/22 01:30 18 11/08/22 01:57 49 L 94 11/08/22 01:45 36.6 C 11/08/22 01:52 96 11/08/22 01:52 65 11/08/22 01:52 71 94 11/08/22 01:47 94 11/08/22 01:47 66 11/08/22 01:47 62 94 11/08/22 01:42 93 11/08/22 01:42 60 11/08/22 01:42 71 94 11/08/22 01:37 51 L 93 11/08/22 01:32 52 L 93 11/08/22 01:31 60 94 11/08/22 01:27 79 92 11/08/22 01:22 106 H 93 11/08/22 01:19 61 93 11/08/22 01:17 60 93 11/08/22 01:12 49 L 93 11/08/22 01:00 16 11/08/22 01:00 16 11/08/22 01:08 51 L 94 11/08/22 01:07 45 L 95 11/08/22 01:02 50 L 96 11/08/22 00:57 46 L 96 11/08/22 00:30 18 11/08/22 00:30 18 11/08/22 00:52 49 L 94 11/08/22 00:49 50 L 113/58 L 11/08/22 00:47 48 L 96 11/08/22 00:00 18 11/08/22 00:00 18 11/08/22 00:42 54 L 96 11/08/22 00:37 61 97 11/08/22 00:33 52 L 115/61 11/08/22 00:32 58 L 97 11/08/22 00:27 83 95 11/08/22 00:22 52 L 94 11/08/22 00:21 64 94 11/08/22 00:19 46 L 113/64 11/08/22 00:17 49 L 95 11/08/22 00:14 67 94 11/08/22 00:12 49 L 94 11/08/22 00:07 94 11/08/22 00:07 61 11/08/22 00:07 53 L 94 11/08/22 00:04 48 L 119/64 11/08/22 00:02 50 L 94 11/07/22 23:58 53 L 94 11/07/22 23:57 55 L 93 11/07/22 23:52 55 L 93 11/07/22 23:30 16 11/07/22 23:30 16 11/07/22 23:49 50 L 110/67 11/07/22 23:47 55 L 94 08/22/23 23:45 48 L 94 11/07/22 23:42 49 L 93 11/07/22 23:37 36.7 C 50 L 94 11/07/22 23:32 55 L 95 11/07/22 23:33 56 L 112/68 11/07/22 23:27 53 L 97 11/07/22 23:22 55 L 98 11/07/22 23:19 54 L 112/69 11/07/22 23:17 48 L 99 11/07/22 23:12 81 99 11/07/22 23:07 51 L 100 11/07/22 23:04 59 L 123/76 11/07/22 23:00 18 11/07/22 23:00 18 11/07/22 23:02 55 L 100 11/07/22 22:30 20 11/07/22 22:30 20 11/07/22 22:57 49 L 100 11/07/22 22:52 47 L 100 11/07/22 22:49 48 L 131/73 11/07/22 22:47 62 87 L 11/07/22 22:42 49 L 100 11/07/22 22:37 57 L 100 11/07/22 22:32 57 L 100 11/07/22 22:33 54 L 138/75 91 11/07/22 22:27 84 L 11/07/22 22:27 58 L 11/07/22 22:27 59 L 91 11/07/22 22:22 66 99 11/07/22 22:19 54 L 146/81 H 11/07/22 22:17 69 100 11/07/22 22:12 54 L 100 11/07/22 22:00 18 11/07/22 22:00 18 11/07/22 22:07 50 L 100 11/07/22 22:06 56 L 139/73 11/07/22 22:05 65 94 11/07/22 22:02 52 L 100 11/07/22 21:45 18 11/07/22 21:45 18 11/07/22 21:57 49 L 100 11/07/22 21:52 49 L 100 11/07/22 21:10 16 11/07/22 21:10 16 11/07/22 21:30 36.7 C 18 11/07/22 20:25 20 08/22/23 20:25 20 11/07/22 20:40 18 11/07/22 20:40 18 11/07/22 20:55 16 11/07/22 20:55 16 11/07/22 21:48 55 L 128/79 11/07/22 21:47 49 L 100 11/07/22 21:44 57 L 90 11/07/22 21:42 55 L 100 11/07/22 21:37 60 100 11/07/22 21:33 50 L 124/65 11/07/22 21:32 54 L 100 11/07/22 21:27 47 L 100 11/07/22 21:22 44 L 100 11/07/22 21:17 56 L 100 11/07/22 21:12 56 L 100 11/07/22 21:07 47 L 100 11/07/22 21:04 50 L 124/68 11/07/22 21:02 47 L 100 11/07/22 20:59 54 L 91 11/07/22 20:57 56 L 100 11/07/22 20:52 49 L 100 11/07/22 20:50 46 L 127/64 11/07/22 20:47 43 L 100 11/07/22 20:43 58 L 91 11/07/22 20:42 58 L 97 11/07/22 20:37 100 11/07/22 20:37 51 L 11/07/22 20:37 50 L 90 11/07/22 20:32 47 L 147/68 H 100 11/07/22 20:30 46 L 129/67 11/07/22 20:28 48 L 120/66 11/07/22 20:27 48 L 97 11/07/22 20:26 48 L 153/82 H 11/07/22 20:23 51 L 92 11/07/22 20:24 52 L 114/72 11/07/22 20:22 100 11/07/22 20:22 51 L 11/07/22 20:22 50 L 131/73 11/07/22 20:20 51 L 18 119/63 11/07/22 20:17 47 L 99 11/07/22 20:18 51 L 115/67 11/07/22 20:15 66 20 79 L 11/07/22 20:14 47 L 114/59 L 08/22/23 20:11 48 L 100 11/07/22 20:12 44 L 137/63 11/07/22 20:10 42 L 117/64 11/07/22 20:07 58 L 90 11/07/22 20:06 55 L 100 11/07/22 20:01 59 L 100 11/07/22 19:56 50 L 95 11/07/22 19:55 64 92 11/07/22 19:51 53 L 100 11/07/22 19:46 57 L 100 11/07/22 19:41 49 L 100 11/07/22 19:36 54 L 100 11/07/22 19:31 47 L 100 11/07/22 19:27 56 L 92 11/07/22 19:26 50 L 99 11/07/22 19:21 52 L 100 11/07/22 19:16 41 L 100 11/07/22 19:11 65 98 11/07/22 19:06 48 L 100 11/07/22 19:02 52 L 124/81 11/07/22 19:01 47 L 100 11/07/22 18:56 49 L 100 11/07/22 18:51 52 L 99 11/07/22 18:46 54 L 100 11/07/22 18:41 51 L 100 11/07/22 18:36 47 L 100 11/07/22 18:31 74 99 11/07/22 18:26 45 L 100 11/07/22 18:21 49 L 93 11/07/22 18:19 43 L 134/75 11/07/22 18:16 48 L 100 11/07/22 18:11 63 100 11/07/22 18:06 54 L 100 11/07/22 17:56 63 96 11/07/22 17:47 121 H 79 L 11/07/22 17:41 91 11/07/22 17:41 56 L 11/07/22 17:41 53 L 88 L 11/07/22 17:35 50 L 100 11/07/22 17:30 47 L 100 11/07/22 17:25 63 97 11/07/22 17:20 46 L 99 11/07/22 17:15 50 L 100 11/07/22 17:13 20 11/07/22 17:13 36.9 C 43 L 20 148/76 H 11/07/22 17:10 44 L 100 Coding Level of Care Code None Diagnoses
[2022-11-08] MEDS: ONDANSETRON INJ 2 MG/ML 2 ML VIAL IV PRN (05:19)
--- NOTE | 2022-11-08 06:00 | Delivery Summary ---
Vaginal Delivery Summary Date of Service November 08, 2022 Vaginal Delivery Summary [facility] Vaginal Delivery Summary: Pre-delivery diagnoses: 32yo @ 40 5/7, induction postdates, h/o substance abuse with current subutex use, anemia, unable to test for gestational diabetes, h/o exposure to Hep C Post-delivery diagnoses: same Procedure: spontaneous vaginal delivery Surgeon: Tawana Rangel DO Complications: none Findings: Viable male . Apgars: 8/9. Weight pending, please see nursery records Estimated blood loss: 300ml Description of delivery: The patient progressed to complete with epidural anesthesia. She then began to push. She spontaneously vaginally delivered a viable from the cephalic presentation. The head delivered in DORINDA position. The anterior shoulder delivered, followed by the posterior shoulder, followed by the body. The baby was placed on mother's abdomen and a spontaneous cry was heard. Delayed cord clamping was employed, and the cord was doubly clamped and cut. Cord blood was obtained. The placenta was delivered spontaneously intact with a 3-vessel cord. The uterus and vagina were swept of clots and debris. IV pitocin was given. The uterus became firm. The cervix, vagina, and perineum were inspected and no lacerations were noted. Excellent hemostasis was observed. The mother and baby are recovering in stable and good condition in the room. Sponge and instrument counts were correct x 2. Tawana Rangel DO [facility] Vaginal Delivery Charge Vaginal Delivery Codes: 16117 global code for the antepartum, delivery, and post- Delivery Type Details: [facility]
[2022-11-08] MEDS ORDERED: bisacodyL 10 MG SUPP PR PRN (07:24)
[2022-11-08] MEDS ORDERED: BENZOCAINE 20% SPRY 85 APPLN/85 GM CAN EXT PRN (07:24)
[2022-11-08] MEDS ORDERED: oxyCODONE/ACETAMINOPHEN 5mg/325mg TAB PO PRN (07:24)
[2022-11-08] MEDS ORDERED: ACETAMINOPHEN 325 MG TAB PO PRN (07:24)
[2022-11-08] MEDS ORDERED: HYDROCORTISONE ACETATE 25 MG SUPP PR PRN (07:24)
[2022-11-08] MEDS ORDERED: OXYTOCIN 30 UNITS/500 ML BAG IV PRN (07:24)
[2022-11-08] MEDS ORDERED: DIPHTHERIA/TETANUS/PERTUSSIS Vaccine (Tdap, Age 7+yrs) 0.5mL SYR/VL IM ONE (07:24)
--- NOTE | 2022-11-08 07:28 | Anesthesia Procedure Note ---
Date of Service November 08, 2022 Anesthesia Post Epidural Note Vital Signs Vital Signs: Temp Pulse Resp BP Pulse Ox O2 Del Method 36.7 C 56 L 18 113/65 94 Room Air 11/08/22 03:45 11/08/22 07:01 11/08/22 06:45 11/08/22 07:16 11/08/22 05:57 11/07/22 15:00 Pain Intensity Abdomen: Pain Intensity: 5 Notes Mental Status: alert / awake / arousable and participated in evaluation Nausea / Vomiting: adequately controlled Pain: adequately controlled Airway Patency, RR, SpO2: stable & adequate BP & HR: stable & adequate Hydration State: stable & adequate Neuraxial Anesthesia: was administered and sensory block is resolving Anesthetic Complications: no major complications apparent Epidural: Removed without complications and With tip intact
[2022-11-08] MEDS: PRENATAL VITAMIN 1 TAB PO SCH (08:32)
[2022-11-08] MEDS: buprenorphine HCL 8 MG SUBL SL SCH ×3 (08:32→21:15)
[2022-11-08] MEDS: DOCUSATE SODIUM 100 MG CAP PO SCH ×3 (08:33→21:16)
[2022-11-08] MEDS: FAMOTIDINE 20 MG TAB PO SCH (09:21)
[2022-11-08] MEDS: IBUPROFEN 600 MG TAB PO PRN ×2 (15:43→21:15)
--- NOTE | 2022-11-09 06:42 | Obstetrical Progress Note ---
Date of Service November 09, 2022 Assessment & Plan (1) (spontaneous vaginal delivery): Plan: recovering well dc to nesting today (2) H/O: substance abuse: Plan: subutex Plan 32 yo [id number] substance abuse on subutex and +Hep C Ab (untreated) PPD 1. Admission and Anticipated Discharge Date Admission Date: November 07, 2022 Supervising Physician Co-Signing Physician Notes Resident Physician Supervision Note: I interviewed and examined the patient. Discussed with Dr. Sotelo and agree with findings and plan as documented in the note. Any exceptions or clarifications are listed here: Doing well. Patient desires d/c. She understands that baby will not be d/c for awhile and is ok with rooming in. Documented By: Johanna Velasquez MD, FACOG Subjective 32 yo [id number] substance abuse on subutex and +Hep C Ab (untreated) PPD 1. Ambulation: ambulating normally Voiding: no voiding problems Passing Gas:: Yes Diet Tolerance:: regular diet Lochia:: Small Feeding Type:: bottle feeding Current Pain Level minimal Patient resting in chair this AM. Anxious for discharge Denies HAMILTON,chest pain, SOB, N/V/D, LE swelling or pain Review of Systems Review of Systems: reviewed, per hpi Physical Exam Physical Exam: General: patient resting comfortably, NAD, non-toxic in appearance, AA&O x 4, answers questions appropriately. Skin: warm, dry, intact HEENT: NC/AT, anicteric sclera, conjunctiva without injection, moist mucus membranes. Heart: +S1/S2, regular, no m/r/g Lungs: equal air entry bilaterally, no rales/rhonchi/wheezes Abd: +BS, soft, NT/ND, uterine fundus firm Ext: warm, no clubbing/cyanosis or edema, Yoandy's neg Neuro: nonfocal, patient AA&O x 4, speech intact, no facial droop, moving all extremities on command. Results & Data Vital Signs (Past 12 Hours) Vital Signs Temp Pulse Resp BP Pulse Ox O2 Del Method 11/08/22 23:02 36.6 C 61 16 111/70 99 Room Air 11/08/22 19:16 36.6 C 65 16 134/79 100 Room Air Resident Activity Tracking Resident Involvement: Resident Care Provided Care Provided: Adult Hospital Medicine
[2022-11-09] MEDS: PRENATAL VITAMIN 1 TAB PO SCH (07:23)
[2022-11-09] MEDS: buprenorphine HCL 8 MG SUBL SL SCH (07:23)
[2022-11-09] MEDS: DOCUSATE SODIUM 100 MG CAP PO SCH (07:23)
[2022-11-09 11:52] LABS: Marijuana Quant, GCMS Urine 487 ng/mL (<5)
[2022-11-09 18:53] LABS: Hepatitis C Vira RNA (Log) PCR <1.18 NOT DETECTED Log IU/mL (NOT DETECTED); Hepatitis C Viral RNA by PCR <15 NOT DETECTED IU/mL (NOT DETECTED)
[2022-11-09] MEDS ORDERED: bisacodyL 5 MG TABEC PO SCH (20:00)
== END 2022-11-09 08:48 | disposition home or self-care (01) | DRG 806 ==
LOC: 4S1 07:20 → 4E2 11-08 09:46